=== PATIENT | male | born 1985 | race Caucasian/White ===

== ENCOUNTER 2017-06-19 14:59 | Emergency (ER) | payer SELFPAY ==
[~2017-06-19] VITALS: Ht 175.3 cm; Wt 56.5 kg
[~2017-06-19 14:59] MED LIST: ENOX40P SQ; HYDR-3129 PO
[2017-06-19 15:00] VITALS: BP 121/77; PULSE 71; RESP 16; TEMP 98.1; O2SAT 95
== END 2017-06-19 19:52 | disposition left against medical advice (07) ==
LOC: NED 14:59
DX: R11.11 Vomiting without nausea (principal); Z53.21 Procedure and treatment not carried out due to patient leaving prior to being seen by health care provider
CPT/HCPCS: 99281